=== PATIENT | female | born 1995 | race Caucasian/White ===

== ENCOUNTER 2017-10-17 17:03 | Emergency (ER) | payer SELFPAY ==
[~2017-10-17] VITALS: Ht 162.6 cm; Wt 60.9 kg
[~2017-10-17 17:03] MED LIST: AMOXICILLIN500 MG PO; BREVICON PO; FLUOXETINE20 MG PO; NAPROSYN500 MG PO; NO HOME MEDS; PEPCID20 MG OR; SULFACET SOD10 % OS; VISTARIL 50MG C50 M1 PO
[2017-10-17] MEDS ORDERED: PRENATA3 PO (17:17)
[2017-10-17] MEDS ORDERED: AMOXICILLIN500 M2 PO (17:21)
[2017-10-17 17:36] VITALS: BP 124/79
== END 2017-10-17 17:36 | disposition home or self-care (01) | DRG 153 ==
LOC: ED 17:03
DX: J02.9 Acute pharyngitis, unspecified (principal); F17.210 Nicotine dependence, cigarettes, uncomplicated; M54.2 Cervicalgia; R05 Cough

== ENCOUNTER 2017-11-30 17:13 | Emergency (ER) | payer SELFPAY ==
[~2017-11-30] VITALS: Ht 162.6 cm; Wt 62.0 kg
[~2017-11-30 17:13] MED LIST changes: +AMOXICILLIN500 M2 PO; +PRENATA3 PO
[2017-11-30 17:55] LABS: URINE BILIRUBIN - DIPSTICK NEGATIVE (NEGATIVE); URINE BLOOD DIPSTICK NEGATIVE (NEGATIVE); URINE CLARITY CLEAR; URINE COLOR YELLOW; URINE GLUCOSE - DIPSTICK NEGATIVE (NEGATIVE); URINE KETONE NEGATIVE (NEGATIVE); URINE LEUK ESTERASE NEGATIVE (NEGATIVE); URINE NITRITE - DIPSTICK NEGATIVE (Negative); URINE PH 7.5 (4.5-8.0); URINE PROTEIN - DIPSTICK NEGATIVE (NEG-TRACE); URINE SPECIFIC GRAVITY 1.015; URINE UROBILINOGEN - DIPSTICK 0.2 E.U./dL (0.2)
[2017-11-30 17:56] LABS: HEMATOCRIT 42.8 % (37.0-47.0); HEMOGLOBIN 14.2 g/dl (12.0-16.0); IMMATURE GRANULOCYTES 0.2 % (0.0-1.0); MEAN CELL VOLUME 87.7 fL CALC (80.0-100.0); MEAN CORPUSCULAR HGB 29.1 pG CALC (26.0-32.0); MEAN CORPUSCULAR HGB CONC 33.2 g/L CALC (32.0-36.0); NEUT# 4.97 thou/uL (2.00-7.15); RED BLOOD COUNT 4.88 mill/uL (4.20-5.60); RED CELL DISTRI WIDTH 13.5 % (11.5-15.5)
[2017-11-30 18:25] LABS: ALBUMIN 4.3 g/dL (3.2-5.0); ANION GAP 17 (6-22 (CALC)); BILIRUBIN, TOTAL 0.4 mg/dL (0.0-1.4); BUN 8 mg/dL (7-17); BUN/CREATININE RATIO 12 (12-20 (CALC)); CARBON DIOXIDE 26 mmol/l (22-30); CHLORIDE 104 mmol/l (95-108); CREATININE 0.7 mg/dL (0.5-1.0); GFR > 60 ML/MIN (>=60 (CALC)); GFR FOR AFR.AMER. > 60 ML/MIN (>=60 (CALC)); LIPASE 77 u/l (23-300); SGOT/AST 22 u/l (14-36); SGPT/ALT 28 u/l (9-52); SODIUM 143 mmol/l (137-146); TOTAL PROTEIN 7.3 g/dL (6.3-8.2)
[2017-11-30 18:28] LABS: ALKALINE PHOSPHATASE 59 u/l (38-126)
[2017-11-30] MEDS ORDERED: ONDANSETRON4 MG PO (18:57)
[2017-11-30 19:40] VITALS: BP 118/76
== END 2017-11-30 19:48 | disposition home or self-care (01) | DRG 392 ==
LOC: ED 17:13
PROVIDERS: Family Medicine
DX: A08.4 Viral intestinal infection, unspecified (principal); R10.12 Left upper quadrant pain; R10.32 Left lower quadrant pain; R11.2 Nausea with vomiting, unspecified
CPT/HCPCS: Q9967

== ENCOUNTER 2018-04-13 11:26 | Emergency (ER) | payer SELFPAY ==
[~2018-04-13] VITALS: Ht 162.6 cm; Wt 60.0 kg
[~2018-04-13 11:26] MED LIST changes: +ONDANSETRON4 MG PO
[2018-04-13 12:00] LABS: URINE BILIRUBIN - DIPSTICK NEGATIVE (NEGATIVE); URINE BLOOD DIPSTICK TRACE-LYSED (NEGATIVE); URINE COLOR YELLOW; URINE GLUCOSE - DIPSTICK NEGATIVE (NEGATIVE); URINE KETONE TRACE mg/dL (NEGATIVE); URINE PH 5.5 (4.5-8.0); URINE PROTEIN - DIPSTICK NEGATIVE (NEG-TRACE); URINE SPECIFIC GRAVITY 1.025; URINE UROBILINOGEN - DIPSTICK 0.2 E.U./dL (0.2)
[2018-04-13 12:01] LABS: URINE CLARITY CLEAR; URINE LEUK ESTERASE SMALL (NEGATIVE)
[2018-04-13 12:04] LABS: URINE NITRITE - DIPSTICK NEGATIVE (Negative)
[2018-04-13 12:09] LABS: URINE BACTERIA RARE hpf; URINE EPITHELIAL CELLS FEW EPI/hpf (0-FEW); URINE RBC 0-2 RBC/hpf (0-5)
[2018-04-13] MEDS ORDERED: CIPROFLOXACN500 MG PO (12:19)
[2018-04-13] MEDS ORDERED: PYRIDIUM200 MG PO (12:19)
[2018-04-13 12:22] VITALS: BP 138/88
== END 2018-04-13 12:26 | disposition home or self-care (01) | DRG 690 ==
LOC: ED 11:26
PROVIDERS: Emergency Medicine
DX: N39.0 Urinary tract infection, site not specified (principal); F17.210 Nicotine dependence, cigarettes, uncomplicated

== ENCOUNTER 2018-06-22 16:39 | Emergency (ER) | payer SELFPAY ==
[~2018-06-22] VITALS: Ht 162.6 cm; Wt 51.0 kg
[~2018-06-22 16:39] MED LIST changes: +CIPROFLOXACN500 MG PO; +PYRIDIUM200 MG PO
[2018-06-22] MEDS ORDERED: PRENATA3 PO (17:16)
[2018-06-22 18:00] VITALS: BP 132/42
[2018-06-22] MEDS ORDERED: IBUPROFEN600 MG PO (18:01)
== END 2018-06-22 18:00 | disposition home or self-care (01) | DRG 556 ==
LOC: ED 16:39
DX: M25.561 Pain in right knee (principal); F17.210 Nicotine dependence, cigarettes, uncomplicated

== ENCOUNTER 2018-08-05 17:39 | Emergency (ER) | payer SELFPAY ==
[~2018-08-05 17:39] MED LIST changes: +IBUPROFEN600 MG PO
== END 2018-08-05 18:05 | disposition left against medical advice (07) | DRG 951 ==
LOC: ED 17:39 → LWOBS 18:04
DX: Z91.19 Patient's noncompliance with other medical treatment and regimen (principal)

== ENCOUNTER 2019-02-17 14:21 | Emergency (ER) | payer SELFPAY ==
[~2019-02-17] VITALS: Ht 157.5 cm; Wt 62.3 kg
[2019-02-17 15:38] LABS: URINE BILIRUBIN - DIPSTICK NEGATIVE (NEGATIVE); URINE BLOOD DIPSTICK NEGATIVE (NEGATIVE); URINE COLOR YELLOW; URINE GLUCOSE - DIPSTICK NEGATIVE (NEGATIVE); URINE KETONE NEGATIVE (NEGATIVE); URINE NITRITE - DIPSTICK NEGATIVE (Negative); URINE PROTEIN - DIPSTICK NEGATIVE (NEG-TRACE); URINE SPECIFIC GRAVITY >=1.030; URINE UROBILINOGEN - DIPSTICK 0.2 E.U./dL (0.2)
[2019-02-17 15:39] LABS: URINE LEUK ESTERASE SMALL (NEGATIVE)
[2019-02-17 15:44] LABS: URINE MUCUS MANY hpf (NONE-FEW); URINE SQUAMOUS EPITHELIAL CELL MODERATE EPI/hpf (0-FEW)
[2019-02-17] MEDS ORDERED: MACROBID100 MG PO (16:17)
[2019-02-17 16:27] VITALS: BP 91/60
[2019-02-17] MEDS ORDERED: ZOFRAN4 M1 PO (16:37)
== END 2019-02-17 16:40 | disposition home or self-care (01) | DRG 833 ==
LOC: ED 14:21
PROVIDERS: Emergency Medicine
DX: O23.41 Unspecified infection of urinary tract in pregnancy, first trimester (principal); O99.331 Smoking (tobacco) complicating pregnancy, first trimester; F17.200 Nicotine dependence, unspecified, uncomplicated; Z3A.01 Less than 8 weeks gestation of pregnancy

== ENCOUNTER 2019-04-05 12:41 | Emergency (ER) | payer MEDICAID ==
[~2019-04-05] VITALS: Ht 157.5 cm; Wt 60.0 kg
[~2019-04-05 12:41] MED LIST changes: +MACROBID100 MG PO; +ZOFRAN4 M1 PO
[2019-04-05 13:58] LABS: HEMATOCRIT 38.1 % (37.0-47.0); HEMOGLOBIN 13.1 g/dl (12.0-16.0); IMMATURE GRANULOCYTES 0.4 % (0.0-5.0); MEAN CELL VOLUME 86.2 fL CALC (80.0-100.0); MEAN CORPUSCULAR HGB 29.6 pG CALC (26.0-32.0); MEAN CORPUSCULAR HGB CONC 34.4 g/L CALC (32.0-36.0); NEUT# 4.98 thou/uL (2.00-7.15); RED BLOOD COUNT 4.42 mill/uL (4.20-5.60); RED CELL DISTRI WIDTH 12.3 % (11.5-15.5)
[2019-04-05 14:00] LABS: URINE BILIRUBIN - DIPSTICK NEGATIVE (NEGATIVE); URINE BLOOD DIPSTICK NEGATIVE (NEGATIVE); URINE COLOR YELLOW; URINE GLUCOSE - DIPSTICK NEGATIVE (NEGATIVE); URINE KETONE 15 mg/dL (NEGATIVE); URINE NITRITE - DIPSTICK NEGATIVE (Negative); URINE PH 5.5 (4.5-8.0); URINE PROTEIN - DIPSTICK NEGATIVE (NEG-TRACE); URINE SPECIFIC GRAVITY 1.025; URINE UROBILINOGEN - DIPSTICK 0.2 E.U./dL (0.2)
[2019-04-05 14:01] LABS: URINE LEUK ESTERASE TRACE (NEGATIVE)
[2019-04-05 14:23] LABS: ALBUMIN 4.4 g/dL (3.2-5.0); ALKALINE PHOSPHATASE 42 u/l (38-126); ANION GAP 12 (6-22 (CALC)); BILIRUBIN, TOTAL 0.3 mg/dL (0.0-1.4); BUN 6 mg/dL (7-17); BUN/CREATININE RATIO 12 (12-20 (CALC)); CARBON DIOXIDE 24 mmol/l (22-30); CHLORIDE 105 mmol/l (95-108); CREATININE 0.5 mg/dL (0.5-1.0); GFR > 60 ML/MIN (>=60 (CALC)); GFR FOR AFR.AMER. > 60 ML/MIN (>=60 (CALC)); LIPASE 162 u/l (23-300); SGOT/AST 18 u/l (14-36); SODIUM 137 mmol/l (137-146)
[2019-04-05 15:11] LABS: BETA-HCG, QUANT(RESULT NUMBER) 129470 mIU/mL
[2019-04-05 15:42] VITALS: BP 137/81
== END 2019-04-05 15:50 | disposition home or self-care (01) ==
LOC: ED 12:41
DX: O26.892 Other specified pregnancy related conditions, second trimester (principal); R10.2 Pelvic and perineal pain; Z3A.14 14 weeks gestation of pregnancy

== ENCOUNTER 2019-08-23 17:58 | Emergency (ER) | payer MEDICAID | END 2019-08-23 19:00 | disposition left against medical advice (07) | DRG 951 | LOC: ED 17:58 → LWOBS 18:30 | DX: Z53.21 Procedure and treatment not carried out due to patient leaving prior to being seen by health care provider (principal) ==

== ENCOUNTER 2020-10-12 14:59 | Emergency (ER) | payer OTHER ==
[~2020-10-12] VITALS: Ht 162.6 cm; Wt 65.0 kg
[2020-10-12] MEDS ORDERED: MEDDOSEPAK PO (17:32)
[2020-10-12 17:36] VITALS: BP 110/70
== END 2020-10-12 17:41 | disposition home or self-care (01) ==
LOC: ED 14:59
DX: R20.2 Paresthesia of skin (principal); F17.290 Nicotine dependence, other tobacco product, uncomplicated

== ENCOUNTER 2022-02-12 12:04 | Emergency (ER) | payer OTHER ==
[~2022-02-12] VITALS: Ht 162.6 cm; Wt 53.1 kg
[~2022-02-12 12:04] MED LIST changes: +MEDDOSEPAK PO
[2022-02-12 12:10] VITALS: BP 140/88
[2022-02-12 12:54] LABS: URINE BLOOD DIPSTICK NEGATIVE (NEGATIVE); URINE COLOR YELLOW; URINE GLUCOSE - DIPSTICK NEGATIVE (NEGATIVE); URINE KETONE TRACE mg/dL (NEGATIVE); URINE LEUK ESTERASE NEGATIVE (NEGATIVE); URINE PH 5.5 (4.5-8.0); URINE PROTEIN - DIPSTICK TRACE mg/dL (NEG-TRACE); URINE SPECIFIC GRAVITY >=1.030; URINE UROBILINOGEN - DIPSTICK 0.2 E.U./dL (0.2)
[2022-02-12 12:56] LABS: IMMATURE GRANULOCYTES 0.1 % (0.0-5.0); MEAN CELL VOLUME 87.6 fL CALC (80.0-100.0); MEAN CORPUSCULAR HGB 28.5 pG CALC (26.0-32.0); MEAN CORPUSCULAR HGB CONC 32.6 g/dL CAL (32.0-36.0); NEUT# 4.47 thou/uL (2.00-7.15); RED BLOOD COUNT 4.59 mill/uL (4.20-5.60); RED CELL DISTRI WIDTH 12.8 % (11.5-15.5)
[2022-02-12 12:59] LABS: HEMOGLOBIN 13.1 g/dl (12.0-16.0)
[2022-02-12 13:00] LABS: HEMATOCRIT 40.2 % (37.0-47.0)
[2022-02-12 13:04] LABS: URINE BILIRUBIN - DIPSTICK NEGATIVE (NEGATIVE); URINE NITRITE - DIPSTICK NEGATIVE (Negative)
[2022-02-12 13:17] LABS: ALBUMIN 4.7 g/dL (3.2-5.0); ALKALINE PHOSPHATASE 51 u/l (38-126); ANION GAP 11 (6-22 (CALC)); BILIRUBIN, TOTAL 0.4 mg/dL (0.0-1.4); BUN 8 mg/dL (7-17); BUN/CREATININE RATIO 13 (12-20 (CALC)); CARBON DIOXIDE 23 mmol/l (22-30); CHLORIDE 106 mmol/l (95-108); CREATININE 0.6 mg/dL (0.5-1.0); GFR FOR AFR.AMER. > 60 ML/MIN (>=60 (CALC)); GFR OTHER RACES > 60 ML/MIN (>=60 (CALC)); LIPASE 76 u/l (23-300); POTASSIUM 3.9 mmol/l (3.5-5.1); SGOT/AST 19 u/l (14-36); SODIUM 136 mmol/l (137-146); TOTAL PROTEIN 7.4 g/dL (6.3-8.2)
[2022-02-12] MEDS ORDERED: LORTAB 5/3255 MG PO (15:19)
[2022-02-12] MEDS ORDERED: NAPROXEN500 MG PO (15:19)
== END 2022-02-12 15:53 | disposition home or self-care (01) ==
LOC: ED 12:04
PROVIDERS: Nurse Practitioner
DX: N83.201 Unspecified ovarian cyst, right side (principal); F17.200 Nicotine dependence, unspecified, uncomplicated
CPT/HCPCS: Q9967

== ENCOUNTER 2023-01-03 18:10 | Emergency (ER) | payer BC ==
[2023-01-03] VITALS (7 sets, daily range): BP systolic 86–102; BP diastolic 55–74
[~2023-01-03] VITALS: Ht 162.6 cm; Wt 45.0 kg
[~2023-01-03 18:10] MED LIST changes: +LORTAB 5/3255 MG PO; +NAPROXEN500 MG PO
[2023-01-03 18:36] LABS: BASO% 0.6 % (0-3); EOS% 4.3 % (0-8); HEMATOCRIT 38.4 % (37.0-47.0); HEMOGLOBIN 12.2 g/dl (12.0-16.0); LYMPH% 41.8 % (15-41); MEAN CELL VOLUME 88.9 fL CALC (80.0-100.0); MEAN CORPUSCULAR HGB 28.2 pG CALC (26.0-32.0); MEAN CORPUSCULAR HGB CONC 31.8 g/dL CAL (32.0-36.0); MONO% 8.9 % (2-13); NEUT# 2.28 thou/uL (2.00-7.15); NEUT% 44.4 % (42-76); RED BLOOD COUNT 4.32 mill/uL (4.20-5.60); RED CELL DISTRI WIDTH 12.9 % (11.5-15.5)
[2023-01-03 18:44] LABS: ALBUMIN 4.6 g/dL (3.2-5.0); ALKALINE PHOSPHATASE 39 u/l (38-126); ANION GAP 16 (6-22 (CALC)); BILIRUBIN, TOTAL 0.3 mg/dL (0.02-1.3); BUN 8 mg/dL (7-17); BUN/CREATININE RATIO 12 (12-20 (CALC)); CARBON DIOXIDE 25 mmol/l (22-30); CHLORIDE 106 mmol/l (95-108); CREATININE 0.7 mg/dL (0.5-1.0); GFR FOR AFR.AMER. > 60 ML/MIN (>=60 (CALC)); GFR OTHER RACES > 60 ML/MIN (>=60 (CALC)); SGOT/AST 24 u/l (14-36); SODIUM 142 mmol/l (137-146); TOTAL PROTEIN 7.1 g/dL (6.3-8.2)
[2023-01-03 18:48] LABS: POTASSIUM 4.7 mmol/l (3.5-5.1)
[2023-01-03 20:57] LABS: URINE BILIRUBIN - DIPSTICK NEGATIVE (NEGATIVE); URINE BLOOD DIPSTICK NEGATIVE (NEGATIVE); URINE COLOR YELLOW; URINE GLUCOSE - DIPSTICK NEGATIVE (NEGATIVE); URINE KETONE NEGATIVE (NEGATIVE); URINE LEUK ESTERASE NEGATIVE (NEGATIVE); URINE PH 6.5 (4.5-8.0); URINE PROTEIN - DIPSTICK NEGATIVE (NEG-TRACE); URINE UROBILINOGEN - DIPSTICK 0.2 E.U./dL (0.2)
[2023-01-03 20:58] LABS: URINE NITRITE - DIPSTICK NEGATIVE (Negative)
== END 2023-01-03 20:39 | disposition home or self-care (01) | DRG 312 ==
LOC: ED 18:10
PROVIDERS: Emergency Medicine
DX: R55 Syncope and collapse (principal); F17.200 Nicotine dependence, unspecified, uncomplicated